=== PATIENT | male | born 1960 | race Caucasian/White ===

== ENCOUNTER → 2018-02-06 11:47 | Outpatient (CLI) | payer BC ==
[~2018-02-06] VITALS: Ht 180.3 cm; Wt 93.2 kg
--- NOTE | ~2018-02-06 | HEMODYNAMI ---
PATIENT:EMILIA SINGLETON MEDICAL RECORD: [id number] : 56 LOCATION:[facility] ADMISSION DATE: 02/06/18 Generatedon:02/06/201814:59 Patient name: EMILIA SINGLETON Patient #: [id number] SSN: : 1960 Date of study: 02/06/2018 Page: Of Hemodynamic Procedure Report Patient Data Patient Demographics Procedure consent was obtained First Name: EMILIA Gender: Male Last Name: MANI : 1960 Patient #: [id number] Age: 57 year(s) Race: Unknown Additional ID: [id number] Contact details Address: [place] [address] State: [place] City: [facility] Zip code: [address] Past Medical History Allergies: No known allergies Admission Admission Data Admission Date: 02/06/2018 Admission Time: 11:47 Lab Results Lab Result Date: 02/06/2018 Lab Result Time: 0:00 Biochemistry Name Units Result Min Max BUN mg/dl 14 --(--*-)-- 7 18 Creatinine mg/dl 1.3 --(---*)-- 0.6 1.3 CBC Name Units Result Min Max Hemoglobin g/dl 15.5 --(-*--)-- 13.5 17.5 Procedure Procedure Types Cath Procedure Diagnostic Procedure [facility] w/Coronaries Procedure Description Procedure Date Procedure Date: 02/06/2018 Procedure Start Time: 14:44 Procedure End Time: 14:58 Procedure Staff Name Function Scott Mendoza MD Performing Physician Kaya Painter RT Monitor Khang Agudelo RT Associate Software Development Engineer Rob Pacheco RN Nurse Chiara Shearer RT Scrub Procedure Data Cath Procedure Fluoroscopy Diagnostic fluoroscopy Total fluoroscopy Time: 1.2 time: 1.2 min min Diagnostic fluoroscopy Total fluoroscopy dose: 426 dose: 426 mGy mGy Contrast Material Contrast Material Type Amount (ml) Isovue 300 56 Entry Location Entry Primary Successful Side Size Upsize Upsize Entry Closure Succes sful Closure Location (Fr) 1 (Fr) 2 (Fr) Remarks Device Remarks Femoral Right 5 Fr Exoseal artery Estimated blood loss: 10 ml Diagnostic catheters Device Type Used For End Catheter Placement MULTIPACK JL 4.0 5Fr Procedure catheter MULTIPACK 3DRC 5Fr Procedure catheter MULTIPACK Pigtail 5 Fr Procedure catheter Procedure Complications No complications Procedure Medications Medication Administration Route Dosage 0.9% NaCl I.V. 100 ml/hr Oxygen etCO2 Nasal cannula 2 l/min Heparin Flush Bag added to field 2 bags (1000units/500ml NS) Lidocaine 2% added to field 20 Versed I.V. 1 mg Fentanyl I.V. 50 mcg Versed I.V. 1 mg Fentanyl I.V. 50 mcg Hemodynamics Rest HGB: 15.5 (g/dl) Heart Rate: 57 (bpm) Pressure Samples Time Site Value (mmHg) Purpose Heart Use Rate(bpm) 14:49 LV 109/6,17 Snapshot 62 14:50 AO 105/69(85) Pullback 63 14:50 LV 125/1,46 Pullback 63 Gradients Valve Time Site 1 Site 2 Mean SEP/DFP Peak To Heart Use (mmHg) (sec/min) Peak Rate (mmHg) (bpm) Aortic 14:50 LV AO 8 18 20 63 125/1,46 105/69(85) Calculations Valve P-P Mean Valve Index Valve Source Name Gradient Area Flow (cm2) Aortic 20 8 20 8 Snapshots Pre Cath Intra NCS Post Cath Vital Signs Time Heart Resp SPO2 etCO2 NIBP (mmHg) Rhythm Pain Sedation Rate (ipm) (%) (mmHg) Status Level (bpm) 14:10:21 49 16 96 126/82(109) NSR 0 (11) 10(A) , No pain 14:15:02 57 18 99 37.4 117/79(106) NSR 0 (11) 10(A) , No pain 14:19:42 50 17 99 1.4 110/77(98) NSR 0 (11) 10(A) , No pain 14:24:23 54 14 100 0 107/72(90) NSR 0 (11) 10(A) , No pain 14:29:35 53 14 100 0 108/70(85) NSR 0 (11) 10(A) , No pain 14:34:15 50 12 100 0 108/66(87) NSR 0 (11) 10(A) , No pain 14:38:54 51 15 100 0 99/69(83) NSR 0 (11) 10(A) , No pain 14:44:07 45 12 100 0 111/71(86) NSR 0 (11) 10(A) , No pain 14:48:44 65 19 98 0 100/70(89) NSR 0 (11) 10(A) , No pain 14:53:24 54 10 98 0 109/59(78) NSR 0 (11) 10(A) , No pain 14:58:07 53 19 100 0 112/58(73) NSR 0 (11) 10(A) , No pain Medications Time Medication Route Dose Verified Delivered Reason Notes Eff ectiveness by by 14:13:53 0.9% NaCl I.V. 100 Rob Rob Per ml/hr Tara Mcfaddenigan physician RN RN 14:14:06 Oxygen etCO2 2 Rob Rob Per Nasal l/min Lorelicia Mcfaddenigan physician cannula RN RN 14:14:17 Heparin Flush added 2 Rob Rob used for Bag to bags Lorigan Lorigan procedure (1000units/500ml field RN RN NS) 14:14:27 Lidocaine 2% added 20ml Rbo Rob for local to vial Lorigan Lorigan anesthetic field RN RN 14:43:24 Versed I.V. 1 mg Rob Rob for Lorigan Lorigan sedation RN RN 14:43:31 Fentanyl I.V. 50 Rob Rob for mcg Lorigan Lorigan sedation RN RN 14:45:04 Versed I.V. 1 mg Rob Rob for Lorigan Lorigan sedation RN RN 14:45:09 Fentanyl I.V. 50 Rob Rob for mcg Lorigan Lorigan sedation RN senior integration developer Log Time Note 13:50:59 Signed procedure consent form obtained from patient. 13:51:01 Diagnostic Cath status Elective 13:51:47 H&P Date Dictated: 01/14/2018 Within 30 days and on chart., H&P Addendum completed by physician on day of procedure. (MUST COMPLETE FOR ALL OUTPATIENTS). 13:52:02 Patient allergic to No known allergies 13:57:22 Khang Agudelo RT(R) sent for patient. Start room use. 13:57:23 Time tracking: Regular hours (M-F 7:00 - 5:00) 13:57:27 Plan of Care:Hemodynamics will remain stable., Cardiac rhythm will remain stable., Comfort level will be maintained., Respiratory function will remain adequate., Patient/ family verbilizes understanding of procedure., Procedure tolerated without complication., Recovers from procedure without complications.. 13:58:02 Lab Result : BUN 14 mg/dl 13:58:02 Lab Result : Creatinine 1.3 mg/dl 13:58:02 Lab Result : Hemoglobin 15.5 g/dl 14:03:14 Patient received from Pre/Post Procedure Room to CCL 1 Alert and oriented. Tansferred to table in Supine position. 14:03:15 Warm blankets applied, and lynette hugger turned on for patient comfort. 14:03:15 Correct patient and procedure confirmed by team. 14:03:16 ECG and BP/O2 sat monitors applied to patient. 14:06:02 Pre-procedure instructions explained to patient. 14:06:02 Pre-op teaching completed and patient verbalized understanding. 14:06:03 Family in waiting room. 14:06:05 Patient NPO since Midnight. 14:06:07 Is the patient allergic to Iodine/contrast media? No. 14:06:12 Is patient on blood thinner?No 14:06:13 Patient diabetic? No. 14:06:16 Previous problem with sedation/anesthesia? No ? 14:06:17 Snore? No 14:06:18 Sleep apnea? No 14:06:19 Deviated septum? No 14:06:19 Opens mouth fully? Yes 14:06:20 Sticks out tongue? Yes 14:06:22 Airway obstruction? No ? 14:06:26 Dentures? Yes out 14:06:35 Modified Brendon's test Ulnar > 7 seconds. 14:06:37 Patient pain scale 0/10 ?. 14:06:41 Pre procedure: right dorsailis pedis pulse 2+ Normal; easily identifiable; not easily obliterated 14:06:54 IV patent on arrival in left forearm with 0.9% NaCl at [facility]. 14:06:57 Lab results completed and on chart. 14:07:00 Right groin area was prepped with chlora-prep and draped in sterile fashion 14:07:01 Alarms reviewed by R. N. 14:07:01 Sharps counted by scrub and verified by R.N. 14:07:04 Use device set Femoral Dx 14:07:05 ACIST Syringe (01636) opened to sterile field. 14:07:05 Bag Decanter (2002S) opened to sterile field. 14:07:06 Medline Cath Pack ([id number]) opened to sterile field. 14:07:07 ACIST Hand Control (93723) opened to sterile field. 14:07:07 ACIST Manifold (13018) opened to sterile field. 14:07:08 Tegaderm 4 x 4 (1626W) opened to sterile field. 14:07:10 SHEATH Prelude 5Fr 0.035 ([id number]-1G-19-035) opened to sterile field. 14:07:10 DIAGNOSTIC Multipack 5Fr catheter set (UM0709) opened to sterile field. 14:07:11 DIAGNOSTIC WIRE .035 260cm J wire (750898) opened to sterile field. 14:09:30 Vital chart was started 14:09:31 Baseline sample Acquired. 14:09:34 Rhythm: sinus bradycardia 14:09:38 Full Disclosure recording started 14:13:53 0.9% NaCl 100 ml/hr I.V. was administered by Rob Pacheco RN; Per physician; 14:14:06 Oxygen 2 l/min etCO2 Nasal cannula was administered by Rob Pacheco RN; Per physician; 14:14:17 Heparin Flush Bag (1000units/500ml NS) 2 bags added to field was administered by Rob Pacheco RN; used for procedure; 14:14:27 Lidocaine 2% 20ml vial added to field was administered by Rob Pacheco RN; for local anesthetic; 14::38 Zero performed for pressure channel P1 14:25:04 Zero performed for pressure channel P1 14:42:04 --------ALL STOP TIME OUT------ 14:42:04 Final Timeout: patient, procedure, and site verified with staff and physician. All members of the team are in agreement. 14:42:05 Right groin site verified by team. 14:42:07 Physical assessment completed. ASA score P 2 - A patient with mild systemic disease as per Scott Mendoza MD. 14:42:10 Sedation plan: IV Moderate Sedation Medication:Versed, Fentanyl 14:43:24 Versed 1 mg I.V. was administered by Rob Pacheco RN; for sedation; 14:43:31 Fentanyl 50 mcg I.V. was administered by Rob Pacheco RN; for sedation; 14:44:05 Procedure started. 14:44:20 Local anesthetic to right femoral artery with Lidocaine 2% by Scott Mendoza MD.INITIAL ACCESS ONLY 14:45:04 Versed 1 mg I.V. was administered by Rob Pacheco RN; for sedation; 14:45:08 A 5 Fr sheath was inserted into the Right Femoral artery 14:45:09 Fentanyl 50 mcg I.V. was administered by Rob Pacheco RN; for sedation; 14:45:27 A MULTIPACK JL 4.0 5Fr catheter was advanced over the wire and used for Procedure. 14:46:11 LCA angiography performed. 14:46:51 Catheter exchanged over wire. 14:47:21 A MULTIPACK 3DRC 5Fr catheter was advanced over the wire and used for Procedure. 14:48:04 RCA angiography performed. 14:48:39 Catheter exchanged over wire. 14:49:07 A MULTIPACK Pigtail 5 Fr catheter was advanced over the wire and used for Procedure. 14:49:09 LV gram done using ROSARIO 14:49:11 Injector settings: Ml/sec: 10, Volume: 20, 14:49:14 LV hemodynamics recorded. 14:49:54 EF : 60 % 14:50:09 Catheter removed. 14:50:13 EXOSEAL 5Fr (EX500) opened to sterile field. 14:55:33 Sheath removed intact; hemostasis achieved with Exoseal to the Right Femoral artery. 14:55:35 Procedure ended.(Physican Out) 14:55:39 Fluoroscopy time 01.20 minutes. 14:55:42 Fluoroscopy dose: 426 mGy 14:55:42 Flurop Dose total: 426 14:55:46 Contrast amount:Isovue 300 56ml. 14:55:47 Sharps counted by scrub and verified by R.N. 14:55:51 Post-op/insertion site Right Femoral artery dressed using a 4 x 4 and Tegaderm. 14:55:59 Post-procedure physical assessment completed. ASA score P 2 - A patient with mild systemic disease as per Scott Mendoza MD. 14:56:02 Post procedure rhythm: unchanged. 14:56:06 Estimated blood loss: 10 ml 14:56:08 Post procedure instruction explained to patient.Patient verbalizes understanding. 14:56:08 Patient needs reinforcement of post procedure teaching. 14:58:17 Procedure and supply charges have been captured, reviewed, submitted and are correct. 14:58:19 Procedure Complication : No complications 14:58:20 Vital chart was stopped 14:58:20 See physician's report for complete and final results. 14:58:23 Report given to Pre/Post Procedure Room. 14:58:27 Patient transfered to Pre/Post Procedure Room with Bed. 14:58:31 Procedure ended. 14:58:31 Full Disclosure recording stopped 14:58:43 End room use (Document Last) Device Usage Item Name Manufacture Quantity Catalog Number Hospital Part Current M inimal Lot# / Charge Number Stock Stock Serial# Code ACIST Syringe Acist 1 57728 [id number] [id number] [id number] 2 0 (99388) [employer] Bag Decanter Microtek 1 2001S 916843 44167 191663 5 () [employer] Inc[employer] Medline Cath Cardinal 1 [id number] 318993 73436 859311 5 Pack Health ([id number]) ACIST Hand Acist 1 98705 739845 519514 465500 5 Control (69322) [employer] ACIST Manifold Acist 1 75586 684949 001383 779421 5 (92590) [employer] Tegaderm 4 x 4 3M 1 1626W 820878 438659 641524 5 (1626W) SHEATH Prelude Merit 1 VJH-5M-15-035 870973 418341 820603 5 5Fr 0.035 Medical ([id number]-8I-52-035) DIAGNOSTIC Cardinal 1 [id number] 115507 93975 164472 3 0 Multipack 5Fr Health catheter set ([id number]) DIAGNOSTIC WIRE [facility] [place] 1 758848 495642 724524 126531 3 0 .035 260cm J wire (263291) MULTIPACK JL Cardinal 1 [id number] 5 4.0 5Fr Health catheter MULTIPACK 3DRC Cardinal 1 694825 5 5Fr catheter Health MULTIPACK Cardinal 1 965358 5 Pigtail 5 Fr Health catheter EXOSEAL 5Fr Cardinal 1 EX500 999917 597498 413428 1 0 (EX500) Health Signature Audit [place] Stage Time Signature Unsigned Intra-Procedure 02/06/2018 Kaya Painter 2:59:28 PM RT(R) Signatures Monitor : Kaya Painter Signature : RT Date : Time : [facility] [address] [facility] [place] [address]
[~2018-02-06 11:47] MED LIST: CRESTOR10 MG PO
[2018-02-06 12:31] VITALS: BP 140/96; Ht 180.3 cm; Wt 93.2 kg
[2018-02-06 12:33] LABS: BASOPHILS 0.6 % (0-2); HEMATOCRIT 42.6 % (42.0-54.0); HEMOGLOBIN 15.5 g/dL (13.5-17.5); IMMATURE GRANULOCYTES 0.1 % (0-5); LYMPHOCYTES 28.7 % (15-50); MCH 32.6 pg (26.0-34.0); MCHC 36.4 g/dL (31.0-37.0); MCV 89.5 fL (80.0-100.0); NEUTROPHILS 58.6 % (40-80); PLATELET COUNT 197 10x3/uL (130-400); RBC 4.76 10x6/uL (4.20-6.10)
[2018-02-06 12:48] LABS: ANION GAP 11.1 mmol/L (8-16); CALCIUM 8.8 mg/dL (8.5-10.1); CARBON DIOXIDE 27.5 mmol/L (21.0-32.0); CREATININE - SERUM 1.3 mg/dL (0.6-1.3); POTASSIUM - SERUM 3.6 mmol/L (3.5-5.1)
== END | disposition home or self-care (01) ==
LOC: D.CATH 11:47
PROVIDERS: Internal Medicine Cardiovascular Disease
DX: I20.9 Angina pectoris, unspecified (principal); Z01.812 Encounter for preprocedural laboratory examination